=== PATIENT | male | born 1975 | race African-American/Black ===

== ENCOUNTER 2019-07-21 04:20 | Emergency (ER) | payer OTHER, SELFPAY ==
--- NOTE | ~2019-07-21 | XR_ITS ---
XR abdomen/kub 1V DATE: 07/21/2019 04:57 INDICATION: Constipation TECHNIQUE: AP projection, 2 views COMPARISON: None FINDINGS: No visceromegaly is evident. The psoas shadows are intact. Moderate amount of fecal materia l in the right colon. No bowel obstruction. No significant abnormal calcification. Lung bases are markel ar. Included skeletal structures are unremarkable. IMPRESSION: No significant abnormality Reviewed, dictated and finalized at [facility]. Reviewed, dictated and finalized at [facility]. IMPRESSION: No significant abnormality
[2019-07-21 04:26] VITALS: BP 139/96; PULSE 117; RESP 22; TEMP 36.9; O2SAT 100
--- NOTE | 2019-07-21 04:50 | ED.GENADULT ---
HPI - General Adult General Chief complaint: Abdominal Pain Stated complaint: abd pain Time Seen by Provider: 07/21/19 04:36 History of Present Illness HPI narrative: Patient is a 44-year-old male who presents the ER with rectal pain. Reports couple days ago he been having abdominal cramping not had a bowel movement. He then began having diarrhea had about 7 episodes. He then woke up this morning and had an episode of firm stool followed by loose stools again. He now has pain around his rectum and feels like his rectum is protruding to the outside. He is noticed scant amount of blood while wiping but no blood in his stool. Related Data Allergies Allergy/AdvReac Type Severity Reaction Status Date / Time naproxen Allergy Unknown Sweating Verified 02/11/17 17:30 Review of Systems Review of Systems: All systems reviewed & are unremarkable except as noted in HPI and below Constitutional: Constitutional: Denies chills, Denies fever(s) and Denies weakness Cardiovascular: Cardiovascular: Denies chest pain and Denies radiating jaw, neck or arm pain Gastrointestinal: Gastrointestinal: Reports abdominal pain, Denies constipation, Reports diarrhea, Reports nausea and Denies vomiting PMFSH Past Medical History Medical History (Updated 07/21/19 @ 05:47 by Surjit Newman MD) No pertinent past medical history Surgical History Surgical History (Updated 07/21/19 @ 04:56 by Surjit Newman MD) No pertinent past surgical history Social History Social History (Updated 07/21/19 @ 04:56 by Surjit Newman MD) Social History: Regular tobacco use Exam Narrative: Exam Narrative: GENERAL: Uncomfortable-appearing, well-nourished, and in no acute distress. HEAD: Normocephalic, atraumatic. ENT: Mucous membranes moist. CHEST: Clear to auscultation. No respiratory distress. HEART: Tachycardic and regular. normal peripheral pulses. ABDOMEN: Soft, nontender, nondistended. Rectal exam reveals circumferential external hemorrhoids as well as an additional internal hemorrhoid. Hemorrhoids are nonbleeding and nonthrombosed. Tender to touch. EXTREMITIES: Normal range of motion. No edema. NEURO: Alert and oriented x3. Course Course Emergency Course: Discussed treatment plan with patient regarding hemorrhoids. Will give surgery referral. Vital Signs Vital signs: Vital Signs Temperature 98.4 F 07/21/19 04:26 Pulse Rate 117 H 07/21/19 04:26 Respiratory Rate 22 H 07/21/19 04:26 Blood Pressure 139/96 H 07/21/19 04:26 Pulse Oximetry 100 07/21/19 04:26 Temperature 98.4 F 07/21/19 04:26 Pulse Rate 117 H 07/21/19 04:26 Respiratory Rate 22 H 07/21/19 04:26 Blood Pressure 139/96 H 07/21/19 04:26 Pulse Oximetry 100 07/21/19 04:26 Medical Decision Making Vital Signs Vital Signs: Vital Signs Temperature 98.4 F 07/21/19 04:26 Pulse Rate 117 H 07/21/19 04:26 Respiratory Rate 22 H 07/21/19 04:26 Blood Pressure 139/96 H 07/21/19 04:26 Pulse Oximetry 100 07/21/19 04:26 Temperature 98.4 F 07/21/19 04:26 Pulse Rate 117 H 07/21/19 04:26 Respiratory Rate 22 H 07/21/19 04:26 Blood Pressure 139/96 H 07/21/19 04:26 Pulse Oximetry 100 07/21/19 04:26 Imaging Data My impression: KUB interpreted by ED physician: Nonobstructive pattern with moderate stool on the right side. Discharge Plan Discharge Clinical Impression: External hemorrhoids Patient Disposition: Home, Self-Care Condition: Stable Instructions: Hemorrhoids (ED) Additional Instructions: Return the ER if you have worsening pain, you have severe bleeding, you lose consciousness, or you have additional concerns. You should do a Sitz salt water soak after a bowel movement and also 3 times a day. Apply Tucks pads to hemorrhoids to help with pain and swelling. Will also benefit from using Anusol suppositories and a stool softener. You should contact the general surgeons office to arrange follow-up as you m
[2019-07-21 06:09] VITALS: BP 129/81; PULSE 88; RESP 16; TEMP 36.8; O2SAT 100
== END 2019-07-21 06:11 | disposition home or self-care (01) ==
PROVIDERS: Emergency Provider Emergency Medicine; PCP Internal Medicine Infectious Disease
DX: K64.4 Residual hemorrhoidal skin tags (principal)
CPT/HCPCS: 74018; 99283